=== PATIENT | male | born 2000 | race Caucasian/White ===

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

== ENCOUNTER 2022-03-05 10:21 | Outpatient (CLI) | payer OTHER, SELFPAY ==
--- NOTE | ~2022-03-05 | XR_ITS ---
EXAM: XR heel RT min 2V DATE: 03/05/2022 10:41 HISTORY: M79.673 - Pain in unspecified foot SKATE/LANDING INJ X 5 DAY . COMPARISON: 10/23/2020. FINDINGS: Normal mineralization. No fracture or dislocation. No lytic or blastic lesion. Joint space s are maintained. No erosion or periosteal change. Soft tissues within normal limits. Prominent os tr igonum, which can be a source of chronic posterior ankle pain in some patients. IMPRESSION: No acute osseous finding in the right heel. Reviewed, dictated and finalized at location K.
== END 2022-03-05 10:22 | disposition home or self-care (01) ==
PROVIDERS: PCP Physician Assistant; Visit Provider Physician Assistant
DX: M79.671 Pain in right foot (principal)
CPT/HCPCS: 73650

== ENCOUNTER 2024-07-18 20:26 | Emergency (ER) | payer OTHER, SELFPAY ==
--- NOTE | ~2024-07-18 | XR_ITS ---
Right Hand Technique: PA, oblique, and lateral views were obtained. Clinical History: Laceration Findings: No acute fracture or dislocation is seen. Osseous alignment is anatomic. Joint spaces are p reserved. Soft tissues are unremarkable. Impression: Unremarkable right hand. Reviewed, dictated and finalized at location M. OR PROPERTY ACCOUNTANT Impression: Unremarkable right hand.
[2024-07-18 20:33] VITALS: BP 129/68; PULSE 85; RESP 20; TEMP 36.3; O2SAT 100
--- NOTE | 2024-07-18 20:54 | PC.NURSE ---
Patient rates his pain 01/13. Notified EDP Dr. Crum
[2024-07-18] MEDS: IBUPROFEN 600 MG TABLET PO (21:38)
[2024-07-18 22:00] VITALS: BP 117/80; PULSE 77; RESP 14; TEMP 36.8; O2SAT 99
[2024-07-18] MEDS: TETANUS,DIPHTHERIA,AC PERTUSSIS ADULT (0.5 ML) BOOSTRIX IM (22:08)
[2024-07-18] MEDS: ONDANSETRON HCL ODT 4 MG TABLET PO (22:14)
--- NOTE | 2024-07-18 22:24 | ED_ITS ---
HPI - Wound/Laceration General Chief Complaint: Wound/Laceration Stated Complaint: Cut to right hand Time Seen by Provider: 07/18/24 21:12 Source: patient Mode of arrival: ambulatory Limitations: no limitations History of Present Illness HPI narrative: This is a 24-year-old male that presents to the emergency department for laceration to the right hand. Reports he was snowboarding and was falling forward. He reached down and accidentally cut his right hand on the snowboard. Denies any other injuries. Unsure of last tetanus vaccination. Denies decreased range of motion or numbness. Related Data Home Medications ?Medication ?Instructions ?Recorded ?Confirmed ?Last Taken ?Type No Home Medications 10/31/21 04/24/22 Unknown History Allergies Allergy/AdvReac Type Severity Reaction Status Date / Time No Known Allergies Allergy Verified 07/18/24 20:36 Review of Systems Review of Systems: CONSTITUTIONAL: Denies fever SKIN: Reports laceration MUSCULOSKELETAL: Denies joint pain, or myalgia. NEUROLOGIC: Denies numbness All systems reviewed & are unremarkable except as noted in HPI and below PMFSH Past Medical History Medical History (Updated 07/19/24 @ 00:01 by Michelle Aparicio PA-C) Contusion of right heel Strain of ankle, right Elbow fracture, right Acute streptococcal pharyngitis Mononucleosis Surgical History Surgical History Hx of retained foreign body fully removed stick imbedded in leg, had [facility] Social History Social History Smoking status: Never smoker Second hand tobacco smoke exposure: No Alcohol intake: never Substance use: unknown Living arrangements: with family Occupation/Education: occupation Gender identity (if verbalized by the patient): Male Exam Narrative: GENERAL: Well-appearing, well-nourished, and in no acute distress. HEAD: Normocephalic, atraumatic. EYES: EOMI. EXTREMITIES: Normal range of motion. No edema or obvious deformity. Right 2nd and 4th fingers palmar surface with 1.5 cm linear lacerations into subcutaneous tissue SKIN: Warm, dry, no rash. NEURO: No focal deficits. Alert and oriented x3. PSYCH: Normal mood and affect Course Course Emergency Course: Patient educated on further wound care Vital Signs Vital signs: Vital Signs Temperature 97.4 F L 07/18/24 20:33 Pulse Rate 85 07/18/24 20:33 Respiratory Rate 20 07/18/24 20:33 Blood Pressure 129/68 07/18/24 20:33 Pulse Oximetry 100 07/18/24 20:33 Oxygen Delivery Room Air 07/18/24 20:33 Temperature 98.3 F 07/18/24 22:00 Pulse Rate 77 07/18/24 22:00 Respiratory Rate 14 07/18/24 22:00 Blood Pressure 117/80 07/18/24 22:00 Pulse Oximetry 99 07/18/24 22:00 Oxygen Delivery Room Air 07/18/24 20:33 Procedures Laceration Laceration 1: Date: 07/19/24 Time: 00:00 Site: hand Side (If applicable): right Size (cm): 1.5 Description: linear Depth: simple, single layer Local Anesthetic: lidocaine 1% Amount of anesthesia used (mL): 2 Pre-repair: wound explored and irrigated ====== Skin Level ====== Skin layer closed with: nylon Size (cm): 4-0 Number of sutures: 2 Technique: simple, interrupted ====== Subcutaneous Layer ====== ====== Muscle Layer ====== ====== Tendon Layer ====== Laceration 2: Date: 07/19/24 Time: 00:00 Site: hand Side (If applicable): right Size (cm): 1.5 Description: linear Depth: simple, single layer Local Anesthetic: lidocaine 1% Amount of anesthesia used (mL): 2 Pre-repair: wound explored and irrigated ====== Skin Level ====== Skin layer closed with: nylon Size (cm): 4-0 Number of sutures: 1 Technique: simple, interrupted ====== Subcutaneous Layer ====== ====== Muscle Layer ====== ====== Tendon Layer ====== MDM - Wound/Laceration MDM Narrative Medical decision making narrative: Patient presents the emergency department for laceration to the right hand sustained just prior to arrival. Patient is neurovascularly intact. Updated on tetanus vaccination. Wounds were irrigated and closed with sutures. He was educated on further wound care. He is to follow up primary provider. He was given warnings to return to the ER Differential Diagnosis Differential diagnosis: Likely laceration, abrasion and avulsion of skin Imaging Data My impression: Right hand x-ray: No acute osseous abnormalities or evidence of foreign body Critical Care Time Critical Care Time Critical Care Time: No Discharge Plan Discharge Clinical Impression: Laceration Patient Disposition: Home, Self-Care Condition: Stable Instructions: Care For Your Stitches (ED), Laceration (ED) Additional Instructions: Return to the emergency department if you experience fever, redness or swelling of your wound, abnormal drainage from your wound, or any other symptoms that are concerning to you. Apply antibiotic ointment daily. Do not soak the wound. Clean with mild soap and water daily Follow-up with your primary care doctor for suture removal in 10-14 days. Patient Language: Mohawk Prescriptions: No Action No Home Medications Follow-up/Referrals: PHYSICIAN,COPY EDITOR [Primary Care Provider] - Ajay Cedeño MD [Physician] -
== END 2024-07-19 00:08 | disposition home or self-care (01) ==
PROVIDERS: Emergency Provider Physician Assistant
DX: S61.411A Laceration without foreign body of right hand, initial encounter (principal); Z23 Encounter for immunization; V00.311A Fall from snowboard, initial encounter; Y93.23 Activity, snow (alpine) (downhill) skiing, snowboarding, sledding, tobogganing and snow tubing
CPT/HCPCS: 12002; 73130; 90471; 90715; 99283; A9270; J2003

== ENCOUNTER 2024-12-02 11:52 | Outpatient (CLI) | payer OTHER, SELFPAY ==
--- NOTE | ~2024-12-02 | XR_ITS ---
2 views of the right clavicle CLINICAL HISTORY: Pain FINDINGS: No fracture or dislocation seen. Joint spaces are preserved. Osseous alignment is anatomic. Soft tissues are unremarkable. IMPRESSION: Unremarkable exam. Reviewed, dictated and finalized at location M. IMPRESSION: Unremarkable exam.
--- NOTE | ~2024-12-02 | XR_ITS ---
Right Shoulder Technique: AP and scapular Y views were obtained. Clinical History: Pain Findings: No fracture or dislocation is seen. Osseous alignment is anatomic. The glenohumeral and acr omioclavicular joint spaces are preserved. Soft tissues are unremarkable. Impression: Unremarkable right shoulder radiographs. Reviewed, dictated and finalized at [facility]. Impression: Unremarkable right shoulder radiographs.
== END 2024-12-02 11:53 | disposition home or self-care (01) ==
LOC: GOSHIMG 11:53
PROVIDERS: PCP Orthopaedic Surgery; Visit Provider Emergency Medicine
DX: M25.511 Pain in right shoulder (principal)
CPT/HCPCS: 73000; 73030